=== PATIENT | female | born 1960 | race Hispanic/Latino ===

== ENCOUNTER 2018-11-21 05:45 | Emergency (ER) | payer SELFPAY ==
[~2018-11-21] VITALS: Ht 157.5 cm; Wt 63.5 kg
[~2018-11-21 05:45] MED LIST: AZITHROMYCIN250 MG; GLIPIZIDE5 MG PO; LEVAQUIN500 MG; LISINOPRIL5 MG PO; METFORMIN HCL500 MG PO; PROTONIX40 MG/ML PO; REMERON30 MG PO
--- OUTSIDE RECORDS SUMMARY | 2018-11-21 05:48 | XMS REPORT ---
Author Author Admin, [place] Organization [facility] Adult Medicine Address [address] [place] [address] Phone Allergies, Adverse Reactions, Alerts Allergy Name Reaction Description Start Date Severity Status Provider CODEINE Critical Active Nida Edwardspard SAFETY REPRESENTATIVE MORPHINE Critical Active Nida Cano SAFETY REPRESENTATIVE PENICILLIN Critical Active Nida Cano SAFETY REPRESENTATIVE BACTRIM Critical Active Adelaida Larsen MD Conditions or Problems Problem Name Problem Code Onset Date Status Entry Date Provider Comment Standard Description Annotate PERIPHERAL NEUROPATHY 356.9 03/16 Active Kellee Wheeler Unspecified hereditary and idiopathic peripheral neuropathy HYPERLIPIDEMIA, MIXED 272.2 02/14 Active Kellee Wheeler Mixed hyperlipidemia DIABETES MELLITUS 250.00 11/15 Active Kellee Wheeler Diabetes mellitus without mention of complication, type II or unspecified type, not stated as uncontrolled Arthritis 716.90 Active Adelaida Larsen MD Arthropathy, unspecified, site unspecified Acute bronchitis 466.0 Active Adelaida Larsen MD Acute bronchitis Uterine fibroids 218.9 Active Donald Rivera MD Leiomyoma of uterus, unspecified Genital wart 078.11 Active Adelaida Larsen MD Condyloma acuminatum HIV infection 042 Active Adelaida Larsen MD Human immunodeficiency virus [HIV] disease Essential hypertension 401.1 Active Adeladia Larsen MD Benign essential hypertension Keratoconjunctivitis sicca, not in sjogrens syndrome, bilateral 370.33 Active Lan Omalley MD Keratoconjunctivitis sicca, not specified as Sjogren's Screening examination for other specified viral diseases V73.89 Active Lan Omalley MD Screening examination for other specified viral diseases Health screening V70.0 Active Latricia Marcum RN Routine general medical examination at a health care facility Dry eye syndrome 375.15 Active Vikram Doe OD Tear film insufficiency, unspecified Hyperopia - OU 367.0 Active Vikram Doe OD Hypermetropia PRESBYOPIA 367.4 Active Vikramglendy Doe OD Presbyopia Regular astigmatism, bilateral 367.21 Active Vikram Doe OD Regular astigmatism Mammogram yearly screening V76.12 Active Annel Osuna MD Other screening mammogram WWE/Routine gynecological examination V72.31 Active Annel Osuna MD Routine gynecological examination Overweight 278.02 Active Adelaida Larsen MD Overweight Medication management V68.89 Active Nida Edwardspard SAFETY REPRESENTATIVE Encounters for other specified administrative purpose Preventive health care V70.0 Active Adelaida Larsen MD Routine general medical examination at a health care facility ANXIETY 300.00 2005 Active Kellee Wheeler Anxiety state, unspecified DEPRESSION 311 2005 Active Kellee Wheeler Depressive disorder, not elsewhere classified DEPRESSION, MAJOR, RECURRENT, SEVERE 296.33 Active Kellee Wheeler Major depressive disorder, recurrent episode, severe degree, without mention of psychotic behavior GENREALIZED ANXIETY DISORDER 300.02 Active Kellee Wheeler Generalized anxiety disorder Hx HPV, GENITAL 079.4 2002 Active Aminta Norton MD Human papillomavirus infection in conditions classified elsewhere and of unspecified site Hx TB (12MO TREATMENT) V01.1 1992 Active Aminta Norton MD Contact with or exposure to tuberculosis PNEUMOCYSTIS PNEUMONIA 136.3 2000 Active Kellee Wheeler Pneumocystosis ANEMIA 285.9 10/14 Inactive Francisco Salomon MD Anemia, unspecified Encounter for screening for eye and ear disorders Inactive Lan Omalley MD Encounter for screening for eye and ear disorders Inactive Lan Omalley MD URI ICD-465.9 Inactive Adelaida Larsen MD Urinary frequency ICD-788.41 Inactive Adelaida Larsen MD Abdominal bloating ICD-787.3 Inactive Adelaida Larsen MD BMI 27.0-27.9 Inactive Adelaida Larsen MD Urinary frequency ICD-788.41 Inactive Adelaida Larsen MD Upper respiratory infection ICD-465.9 Inactive Adelaida Larsen MD Constipation Unspecified ICD-564.00 Inactive Adelaida Larsen MD UTI ICD-599.0 Inactive Adelaida Larsen MD Uterine fibroids ICD-218.9 Inactive Adelaida Larsen MD Abdominal pain ICD-789.00 Inactive Adelaida Larsen MD AIDS ICD-042 Inactive Adelaida Larsen MD ANEMIA ICD-285.9 Inactive Francisco Salomon MD HIV INFECTION 042 1990 Inactive Kellee Wheeler Human immunodeficiency virus [HIV] disease HPV, GENITAL 079.4 2002 Inactive Kellee Wheeler Human papillomavirus infection in conditions classified elsewhere and of unspecified site MENINGITIS ICD-322.9 Inactive Adelaida Larsen MD TUBERCULOSIS EXPOSURE (12MO TREATMENT) V01.1 1993 Inactive Kellee Wheeler Contact with or exposure to tuberculosis URI 465.9 Resolved Adelaida Larsen MD Acute upper respiratory infections of unspecified site Urinary frequency 788.41 Resolved Adelaida Larsen MD Urinary frequency Abdominal bloating 787.3 Resolved Adelaida Larsen MD Flatulence, eructation, and gas pain BMI 27.0-27.9 Resolved Adelaida Larsen MD Body Mass Index 27.0-27.9, adult Urinary frequency 788.41 Resolved Adelaida Larsen MD Urinary frequency Upper respiratory infection 465.9 Resolved Adelaida Larsen MD Acute upper respiratory infections of unspecified site Constipation Unspecified 564.00 Resolved Adelaida Larsen MD Constipation, unspecified UTI 599.0 Resolved Adelaida Larsen MD Urinary tract infection, site not specified Uterine fibroids 218.9 Resolved Adelaida Larsen MD Leiomyoma of uterus, unspecified Abdominal pain 789.00 Resolved Adelaida Larsen MD Abdominal pain, unspecified site AIDS 042 1990 Resolved Adelaida Larsen MD Human immunodeficiency virus [HIV] disease MENINGITIS 322.9 2003 Resolved Adelaida Larsen MD Meningitis, unspecified Medication List Medication Instructions Start Date Stop Date Generic Name NDC Status Provider Patient Instruction VOLTAREN 1 % TRANSDERMAL GEL Apply to hands Three Times a Day DICLOFENAC SODIUM 39979711969 Active Adelaida Larsen MD Active IBUPROFEN 600 MG ORAL TABLET 1 By Mouth Every 8 hours As Needed pain/fever IBUPROFEN 07132256363 Active Adelaida Larsen MD Active GLIPIZIDE ER 2.5 MG ORAL TABLET EXTENDED RELEASE 24 HOUR Take 1 tablet orally once daily for diabetes GLIPIZIDE 51904892282 Active Adelaida Larsen MD Active ATIVAN 2 MG ORAL TABLET 1 By Mouth Every Day As Needed LORAZEPAM 86198526485 Active Elizabeth Khanna MD Active ALDARA 5 % EXTERNAL CREAM Apply to affected areas three times a week before bedtime and wash off in morning. IMIQUIMOD 52054298199 Active Adelaida Larsen MD Active DESCOVY 200-25 MG ORAL TABLET take 1 tablet once daily EMTRICITABINE- TENOFOVIR AF 93503524717 Active Adelaida Larsen MD Active PREZCOBIX 800-150 MG ORAL TABLET 1 tab by mouth daily with food DARUNAVIR-COBICISTAT 22976443838 Active Adelaida Larsen MD Active REMERON 30 MG ORAL TABLET 1 By Mouth qpm MIRTAZAPINE 74145212853 Active Elizabeth Khanna MD Active VALTREX 500 MG ORAL TABLET 1 pill twice a day for 7 days VALACYCLOVIR HCL 07848151328 Active Adelaida Larsen MD Active ACCU-CHEK SMARTVIEW IN VITRO STRIP use as directed GLUCOSE BLOOD 89739755468 Active Adelaida Larsen MD Active ZOFRAN ODT 4 MG ORAL TABLET DISINTEGRATING take 1 tablet 3-4 times a day as needed for nausea/vomiting ZOFRAN ODT 4 MG ORAL TABLET DISINTEGRATING ONDANSETRON Inactive AZITHROMYCIN 250 MG ORAL TABLET 2 tablets by mouth on day one then one tablet by mouth each day for a total of 5 days AZITHROMYCIN 250 MG ORAL TABLET 480724 AZITHROMYCIN Inactive CETIRIZINE HCL 10 MG ORAL TABLET Take 1 tablet orally once daily as needed for nasal congestion CETIRIZINE HCL 10 MG ORAL TABLET 8327717 CETIRIZINE HCL Inactive NEXIUM 20 MG ORAL CAPSULE DELAYED RELEASE 1 by mouth daily in am on empty stomach. NEXIUM 20 MG ORAL CAPSULE DELAYED RELEASE 070060 ESOMEPRAZOLE MAGNESIUM Inactive ZOLOFT 25 MG ORAL TABLET 1 By Mouth Every Day ZOLOFT 25 MG ORAL TABLET 861140 SERTRALINE HCL Inactive COLACE 100 MG ORAL CAPSULE 1 by mouth twice a day as needed for constipation COLACE 100 MG ORAL CAPSULE 5545506 DOCUSATE SODIUM Inactive ZOFRAN ODT 4 MG ORAL TABLET DISINTEGRATING 1 By Mouth every 8 hrs as needed for nausea ZOFRAN ODT 4 MG ORAL TABLET DISINTEGRATING ONDANSETRON Inactive CIPRO 500 MG ORAL TABLET 1 by mouth twice a day for 10 days CIPRO 500 MG ORAL TABLET 789678 CIPROFLOXACIN HCL Inactive LEXAPRO 20 MG ORAL TABLET 1 By Mouth Every Day LEXAPRO 20 MG ORAL TABLET 329669 ESCITALOPRAM OXALATE Inactive ATIVAN 2 MG ORAL TABLET 1 By Mouth Every Day As Needed ATIVAN 2 MG ORAL TABLET 740995 LORAZEPAM Inactive TRIUMEQ 600-50-300 MG ORAL TABLET One tablet daily with or without food TRIUMEQ 600-50-300 MG ORAL TABLET [id number] Inactive CETIRIZINE HCL 10 MG ORAL TABLET take 1 tablet orally once for nasal congestion. CETIRIZINE HCL 10 MG ORAL TABLET 3811848 CETIRIZINE HCL Inactive PREZCOBIX 800-150 MG ORAL TABLET Take 1 tablet orally once daily PREZCOBIX 800-150 MG ORAL TABLET DARUNAVIR-COBICISTAT Inactive TRUVADA 200-300 MG ORAL TABLET 1 by mouth daily TRUVADA 200-300 MG ORAL TABLET EMTRICITABINE-TENOFOVIR Inactive DAPSONE 100 MG ORAL TABLET 1 By Mouth once a day for preventioin of infection DAPSONE 100 MG ORAL TABLET 152524 DAPSONE Inactive PROMETHAZINE HCL 12.5 MG ORAL TABLET 1 by mouth every 6 hours as needed for nausea or emesis PROMETHAZINE HCL 12.5 MG ORAL TABLET 772041 PROMETHAZINE HCL Inactive DICYCLOMINE HCL 10 MG ORAL CAPSULE Take 1 tablet orally every 8 hrs as needed for abdominal pain. DICYCLOMINE HCL 10 MG ORAL CAPSULE 421297 DICYCLOMINE HCL Inactive STRIBILD 039-423-148-300 MG ORAL TABLET 1 By Mouth once a day STRIBILD 365-519-108-300 MG ORAL TABLET [id number]-[id number]-XLKIFQKL-TENOF Inactive ATOVAQUONE 750 MG/5ML ORAL SUSPENSION Take 10 ml orally once daily. ATOVAQUONE 750 MG/5ML ORAL SUSPENSION 115112 ATOVAQUONE Inactive PROZAC 20 MG ORAL CAPSULE 1 By Mouth Every Day PROZAC 20 MG ORAL CAPSULE 000043 FLUOXETINE HCL Inactive REMERON 30 MG ORAL TABLET 1 By Mouth at bedtime As Needed REMERON 30 MG ORAL TABLET 792903 MIRTAZAPINE Inactive AMBIEN 10 MG ORAL TABLET 1 tablet at bedtime as needed for sleep. AMBIEN 10 MG ORAL TABLET 298422 ZOLPIDEM TARTRATE Inactive ASPIRIN 81 MG ORAL TABLET 1 by mouth every day ASPIRIN 81 MG ORAL TABLET ASPIRIN Inactive ATRIPLA 600-200-300 MG ORAL TABLET 1 tablet by mouth at bedtime on empty stomach ATRIPLA 600-200-300 MG ORAL TABLET Qrqylegiv-Ejloqtdrnq-Lzsfasdqr Inactive GLIPIZIDE ER 5 MG ORAL TABLET EXTENDED RELEASE 24 HOUR 1 tablet once daily for diabetes. GLIPIZIDE ER 5 MG ORAL TABLET EXTENDED RELEASE 24 HOUR GLIPIZIDE Inactive LOSARTAN POTASSIUM 25 MG ORAL TABLET take 1 tablet orally once daily for high blood pressure. LOSARTAN POTASSIUM 25 MG ORAL TABLET 195703 LOSARTAN POTASSIUM Inactive INTELENCE 200 MG ORAL TABLET 1 By Mouth Twice a Day with food INTELENCE 200 MG ORAL TABLET ETRAVIRINE Inactive LUNESTA 2 MG ORAL TABLET 1 By Mouth take at bedtime as needed for sleep LUNESTA 2 MG ORAL TABLET 681751 ESZOPICLONE Inactive NORVIR 100 MG ORAL TABLET 1 By Mouth Twice a Day NORVIR 100 MG ORAL TABLET 833621 RITONAVIR Inactive PREZISTA 600 MG ORAL TABLET 1 By Mouth Twice a Day with food PREZISTA 600 MG ORAL TABLET DARUNAVIR ETHANOLATE Inactive CYMBALTA 20 MG ORAL CAPSULE DELAYED RELEASE PARTICLES 2 By Mouth Every Morning CYMBALTA 20 MG ORAL CAPSULE DELAYED RELEASE PARTICLES 321122 DULOXETINE HCL Inactive TRAZAMINE 50 MG ORAL 1/2 to 1 By Mouth take at bedtime As Needed TRAZAMINE 50 MG ORAL TRAZODONE & DIET MANAGE PROD Inactive ZOFRAN ODT 4 MG ORAL TABLET DISINTEGRATING take 1 tablet 3-4 times a day as needed for nausea/vomiting ONDANSETRON 90025631090 No Longer Active Adelaida Larsen MD Active AZITHROMYCIN 250 MG ORAL TABLET 2 tablets by mouth on day one then one tablet by mouth each day for a total of 5 days AZITHROMYCIN 11368079652 No Longer Active Aminta Norton MD Active CETIRIZINE HCL 10 MG ORAL TABLET Take 1 tablet orally once daily as needed for nasal congestion CETIRIZINE HCL 44452825992 No Longer Active Adelaida Larsen MD Active NEXIUM 20 MG ORAL CAPSULE DELAYED RELEASE 1 by mouth daily in am on empty stomach. ESOMEPRAZOLE MAGNESIUM 67191217630 No Longer Active Adelaida Larsen MD Active ZOLOFT 25 MG ORAL TABLET 1 By Mouth Every Day SERTRALINE HCL 12856349823 No Longer Active Elizabeth Khanna MD Active COLACE 100 MG ORAL CAPSULE 1 by mouth twice a day as needed for constipation DOCUSATE SODIUM 82623110903 No Longer Active Adelaida Larsen MD Active ZOFRAN ODT 4 MG ORAL TABLET DISINTEGRATING 1 By Mouth every 8 hrs as needed for nausea ONDANSETRON 84781569140 No Longer Active Adelaida Larsen MD Active CIPRO 500 MG ORAL TABLET 1 by mouth twice a day for 10 days CIPROFLOXACIN HCL 40887182605 No Longer Active Adelaida Lasren MD Active LEXAPRO 20 MG ORAL TABLET 1 By Mouth Every Day ESCITALOPRAM OXALATE 79373409230 No Longer Active Elizabeth Khanna MD Active ATIVAN 2 MG ORAL TABLET 1 By Mouth Every Day As Needed LORAZEPAM 81605999220 No Longer Active Elizabeth Khanna MD Active TRIUMEQ 600-50-300 MG ORAL TABLET One tablet daily with or without food ZSQJXGXN-SUXDGQOJRTEU-HSFPOND 12837319006 No Longer Active Adelaida Larsen MD Active CETIRIZINE HCL 10 MG ORAL TABLET take 1 tablet orally once for nasal congestion. CETIRIZINE HCL 63529764843 No Longer Active Adelaida Larsen MD Active PREZCOBIX 800-150 MG ORAL TABLET Take 1 tablet orally once daily DARUNAVIR-COBICISTAT 14995769208 No Longer Active Adelaida Larsen MD Active TRUVADA 200-300 MG ORAL TABLET 1 by mouth daily EMTRICITABINE-TENOFOVIR 32620909725 No Longer Active Adelaida Larsen MD Active DAPSONE 100 MG ORAL TABLET 1 By Mouth once a day for preventioin of infection DAPSONE 03849794654 No Longer Active Adelaida Larsen MD Active PROMETHAZINE HCL 12.5 MG ORAL TABLET 1 by mouth every 6 hours as needed for nausea or emesis PROMETHAZINE HCL 17940275399 No Longer Active Adelaida Larsen MD Active DICYCLOMINE HCL 10 MG ORAL CAPSULE Take 1 tablet orally every 8 hrs as needed for abdominal pain. DICYCLOMINE HCL 06751233669 No Longer Active Adelaida Larsen MD Active STRIBILD 088-863-345-300 MG ORAL TABLET 1 By Mouth once a day APVBIAU-HTGCGGE-EVJZZDVB-TENOF 67628432233 No Longer Active Adelaida Larsen MD Active ATOVAQUONE 750 MG/5ML ORAL SUSPENSION Take 10 ml orally once daily. ATOVAQUONE 04414243697 No Longer Active Adelaida Larsen MD Active PROZAC 20 MG ORAL CAPSULE 1 By Mouth Every Day FLUOXETINE HCL 13935664303 No Longer Active Elizabeth Khanna MD Active REMERON 30 MG ORAL TABLET 1 By Mouth at bedtime As Needed MIRTAZAPINE 61850137975 No Longer Active Adelaida Larsen MD Active AMBIEN 10 MG ORAL TABLET 1 tablet at bedtime as needed for sleep. ZOLPIDEM TARTRATE 10672485099 No Longer Active Elizabeth Khanna MD Active ASPIRIN 81 MG ORAL TABLET 1 by mouth every day ASPIRIN 07454527449 No Longer Active Adelaida Larsen MD Active ATRIPLA 600-200-300 MG ORAL TABLET 1 tablet by mouth at bedtime on empty stomach Rcvumhove-Aficfvvgzg-Npxgzdutg 87236513944 No Longer Active Adelaida Larsen MD Active GLIPIZIDE ER 5 MG ORAL TABLET EXTENDED RELEASE 24 HOUR 1 tablet once daily for diabetes. GLIPIZIDE 81465215832 No Longer Active Adelaida Larsen MD Active LISINOPRIL 10 MG ORAL TABLET 1 by mouth every day LISINOPRIL 32365440705 No Longer Active Adelaida Larsen MD Active LOSARTAN POTASSIUM 25 MG ORAL TABLET take 1 tablet orally once daily for high blood pressure. LOSARTAN POTASSIUM 04687106599 No Longer Active Adelaida Larsen MD Active INTELENCE 200 MG ORAL TABLET 1 By Mouth Twice a Day with food ETRAVIRINE 48336575232 No Longer Active Adelaida Larsen MD Active LUNESTA 2 MG ORAL TABLET 1 By Mouth take at bedtime as needed for sleep ESZOPICLONE 18945224111 No Longer Active Adelaida Larsen MD Active NORVIR 100 MG ORAL TABLET 1 By Mouth Twice a Day RITONAVIR 89447290472 No Longer Active Adelaida Larsen MD Active PREZISTA 600 MG ORAL TABLET 1 By Mouth Twice a Day with food DARUNAVIR ETHANOLATE 25706628934 No Longer Active Adelaida Larsen MD Active CYMBALTA 20 MG ORAL CAPSULE DELAYED RELEASE PARTICLES 2 By Mouth Every Morning DULOXETINE HCL 66235836573 No Longer Active Francisco Salomon MD Active TRAZAMINE 50 MG ORAL 1/2 to 1 By Mouth take at bedtime As Needed TRAZODONE & DIET MANAGE PROD 25215473714 No Longer Active Francisco Salomon MD Active Immunizations Vaccine Administration Date Value Standard Description influenza immunization (Flu Vax) has been administered given elsewhere, at [facility] influenza virus vaccine, unspecified formulation influenza immunization (Flu Vax) has been administered given elsewhere influenza virus vaccine, unspecified formulation Diagnostic Results Date Name Value Unit Range Description Lab Report: UA/M w/rflx Culture, Routine, Microscopic Examination, UA/M ... - Urinalysis mucus on urinalysis Present Not Estab. WBC urine on microscopy 0-5 /hpf {Cells}/[HPF] 0 - 5 Lab Report: CD4/CD8 Ratio Profile, Comp. Metabolic Panel (14), Lipid Panel - Hematology T-helper cells (CD4) to T-suppressor cells (CD8) ratio 76.8 % 12.0-35.5 Lab Report: CD4/CD8 Ratio Profile, Comp. Metabolic Panel (14), Lipid Aparicio ... - Serology HIV-1 antibody, western blot, serum Positive Lab Report: RNA, Real Time PCR (Graph) - Chemistry HIV-1 RNA (log 10) 4.938 sjk90uxdx/mL Lab Report: CD4/CD8 Ratio Profile, Comp. Metabolic Panel (14), Lipid Aparicio ... - Microbiology hepatitis A antibody, total Positive Negative Lab Report: CD4/CD8 Ratio Profile, Comp. Metabolic Panel (14), RNA, Real ... - Chemistry urea nitrogen, blood 12 mg/dL 6-24 Lab Report: QuantiFERON TB Gold (In Tube), QuantiFERON In Tube - Hematology Quantiferon Gold TB blood test for tuberculosis screening Negative Negative Lab Report: CD4/CD8 Ratio Profile, Comp. Metabolic Panel (14), RNA, Real ... - Hematology erythrocyte (RBC) count 3.96 X10E6/UL 10*6/mm3 3.77-5.28 Office Visit: Acute Visit #10 - Urinalysis nitrite, urine, semiquantitative negative Lab Report: UA/M w/rflx Culture, Routine, Microscopic Examination, UA/M ... - Urinalysis urine color Yellow Yellow Lab Report: CD4/CD8 Ratio Profile, Comp. Metabolic Panel (14), RNA, Real ... - Chemistry urea nitrogen/creatinine ratio, serum 14 9-23 Lab Report: CD4/CD8 Ratio Profile, Comp. Metabolic Panel (14), RNA, Real ... - Hematology mean corpuscular volume, RBC 92 fL 79-97 Lab Report: CD4/CD8 Ratio Profile, Comp. Metabolic Panel (14), Lipid Aparicio ... - Chemistry HDL cholesterol, serum 60 mg/dL >39 Lab Report: CD4/CD8 Ratio Profile, Comp. Metabolic Panel (14), RNA, Real ... - Hematology monocytes as percent of blood leukocytes 7 % Lab Report: CD4/CD8 Ratio Profile, Comp. Metabolic Panel (14), RNA, Real ... - Chemistry creatinine, serum 0.84 mg/dL 0.57-1.00 bilirubin, serum, total 0.4 mg/dL 0.0-1.2 Lab Report: CD4/CD8 Ratio Profile, Comp. Metabolic Panel (14), RNA, Real ... - Hematology Eosinophil Absolute Count 0.2 X10E3/UL 10*3/uL 0.0-0.4 Office Visit: Acute Visit #10 - Urinalysis blood in urine (hemoglobin) by dipstick hemolyzed trace Lab Report: UA/M w/rflx Culture, Routine, Microscopic Examination, UA/M ... - Urinalysis pH, urine, semiquantitative 6.0 5.0-7.5 Lab Report: CD4/CD8 Ratio Profile, Comp. Metabolic Panel (14), RNA, Real ... - Hematology leukocyte count, blood 5.4 X10E3/UL 10*3/mm3 3.4-10.8 Lab Report: CD4/CD8 Ratio Profile, Comp. Metabolic Panel (14), RNA, Real ... - Chemistry potassium, serum 4.7 mmol/L 3.5-5.2 albumin, serum 3.8 g/dL 3.5-5.5 Lab Report: CD4/CD8 Ratio Profile, Comp. Metabolic Panel (14), RNA, Real ... - Hematology lymphocyte count, blood, automated 2.0 X10E3/UL 10*3/mm3 0.7-3.1 Lab Report: Chlamydia/GC Amplification - Microbiology Neisseria gonorrhoeae DNA probe Negative Negative Lab Report: CD4/CD8 Ratio Profile, Comp. Metabolic Panel (14), RNA, Real ... - Chemistry sodium, serum 141 mmol/L 134-144 Lab Report: Urine Culture, Routine, Result - Urinalysis urine culture No growth Lab Report: CD4/CD8 Ratio Profile, Comp. Metabolic Panel (14), Lipid Aparicio ... - Serology toxoplasma gondii antibody, IgG <6.5 0.0-6.4 Lab Report: CD4/CD8 Ratio Profile, Comp. Metabolic Panel (14), RNA, Real ... - Hematology neutrophils as percent of blood leukocytes 52 % Lab Report: Iron and TIBC, Vitamin B12 and Folate, Ferritin, Serum - Chemistry iron saturation percent, serum 5 % 15-55 Lab Report: UA/M w/rflx Culture, Routine, Microscopic Examination, UA/M ... - Chemistry specific gravity, body fluid 1.019 1.005-1.030 Lab Report: CD4/CD8 Ratio Profile, Comp. Metabolic Panel (14), RNA, Real ... - Serology HIV-1RNA, serum, by PCR, quantitative 70 {Copies}/mL Lab Report: Iron and TIBC, Vitamin B12 and Folate, Ferritin, Serum - Chemistry iron, serum 19 ug/dL 35-155 Lab Report: UA/M w/rflx Culture, Routine, Microscopic Examination, UA/M ... - Chemistry RBC, Urine 0-2 /hpf /[HPF] 0 - 2 Lab Report: UA/M w/rflx Culture, Routine, Microscopic Examination, UA/M ... - Urinalysis protein, urine, semiquantitative (dipstick) Negative Negative/Trace Office Visit: Acute Visit #10 - Serology influenza virus A antigen negative Lab Report: CD4/CD8 Ratio Profile, Comp. Metabolic Panel (14), RNA, Real ... - Serology rapid plasma reagin antibody, serum Non Reactive Non Reactive Lab Report: UA/M w/rflx Culture, Routine, Microscopic Examination, UA/M ... - Microbiology microscopic exam See below: Lab Report: CD4/CD8 Ratio Profile, Comp. Metabolic Panel (14), Lipid Aparicio ... - Serology hepatitis B core antibody, total Negative Negative Lab Report: CD4/CD8 Ratio Profile, Comp. Metabolic Panel (14), Lipid Aparicio ... - Chemistry triglyceride, serum, fasting 170 mg/dL 0-149 Lab Report: CD4/CD8 Ratio Profile, Comp. Metabolic Panel (14), RNA, Real ... - Chemistry calcium, serum 9.6 mg/dL 8.7-10.2 Lab Report: Microalb/Creat Ratio, [facility] - Chemistry microalbumin/creatinine ratio, urine <9.9 mg/g creat ug/mg 0.0-30.0 Lab Report: UA/M w/rflx Culture, Routine, Microscopic Examination, UA/M ... - Urinalysis bacteria, urine microscopy Few None seen/Few Office Visit: Acute Visit #10 - Urinalysis specific gravity, urine 1.020 Lab Report: CD4/CD8 Ratio Profile, Comp. Metabolic Panel (14), RNA, Real ... - Chemistry protein, total, serum 6.9 g/dL 6.0-8.5 alkaline phosphatase, serum 118 U/L 39-117 Lab Report: CD4/CD8 Ratio Profile, Comp. Metabolic Panel (14), RNA, Real ... - Hematology T-helper cells (CD4) as percent of blood lymphocytes 16.8 % 30.8-58.5 lymphocytes as percent of blood leukocytes 37 % Lab Report: CD4/CD8 Ratio Profile, Comp. Metabolic Panel (14), RNA, Real ... - Chemistry hemoglobin A1C, blood, as % of total hemoglobin 6.0 % 4.8-5.6 Lab Report: CD4/CD8 Ratio Profile, Comp. Metabolic Panel (14), RNA, Real ... - Genetics/fertility eGFR if 90 mL/min/1.73m2 >59 Lab Report: CD4/CD8 Ratio Profile, Comp. Metabolic Panel (14), RNA, Real ... - Chemistry globulin, serum 3.1 1.5-4.5 Estimated Glomerular Filtration Rate (calc) 78 mL/min/1.73m2 >59 Lab Report: UA/M w/rflx Culture, Routine, Microscopic Examination, UA/M ... - Basic Occult Blood, urine Negative Negative Lab Report: CD4/CD8 Ratio Profile, Comp. Metabolic Panel (14), Lipid Aparicio ... - Serology hepatitis B surface antibody Reactive Lab Report: UA/M w/rflx Culture, Routine, Microscopic Examination, UA/M ... - Urinalysis urobilinogen, urine, semiquantitative (dipstick) 0.2 0.2-1.0 Lab Report: CD4/CD8 Ratio Profile, Comp. Metabolic Panel (14), Lipid Panel - Chemistry estimated glomerular filtration rate >59 mL/min/1.73 mL/min >59 Lab Report: CD4/CD8 Ratio Profile, Comp. Metabolic Panel (14), RNA, Real ... - Hematology monocyte count, blood, automated 0.4 X10E3/UL 10*3/uL 0.1-0.9 Lab Report: CD4/CD8 Ratio Profile, Comp. Metabolic Panel (14), Lipid Aparicio ... - Genetics/fertility HIV-1 gp41 antibody, serum Present Lab Report: HCV Antibody, RPR, TSH Rfx on Abnormal to Free T4, HBsAg Screen - Chemistry thyroid stimulating hormone, serum 0.780 u[iU]/mL 0.450-4.500 Office Visit: Acute Visit #10 - Chemistry beta HCG, urine, semiquantitative negative Lab Report: CD4/CD8 Ratio Profile, Comp. Metabolic Panel (14), Lipid Aparicio ... - Chemistry very low density lipoproteins 34 mg/dL 5-40 Lab Report: UA/M w/rflx Culture, Routine, Microscopic Examination, UA/M ... - Urinalysis epithelial cells, urine 0-10 /[LPF] 0 - 10 Lab Report: HCV Antibody, RPR, TSH Rfx on Abnormal to Free T4, HBsAg Screen - Chemistry hepatitis B surface antigen Negative Negative Lab Report: CD4/CD8 Ratio Profile, Comp. Metabolic Panel (14), RNA, Real ... - Chemistry chloride, serum 102 mmol/L 96-106 Lab Report: CD4/CD8 Ratio Profile, Comp. Metabolic Panel (14), Lipid Aparicio ... - Serology HIV-1/HIV-2 Ab, serum Repeatedly Reactive Non Reactive Lab Report: UA/M w/rflx Culture, Routine, Microscopic Examination, UA/M ... - Urinalysis leukocyte esterase, urine, by dipstick Negative Negative Lab Report: CD4/CD8 Ratio Profile, Comp. Metabolic Panel (14), RNA, Real ... - Hematology mean corpuscular hemoglobin concentration, RBC 33.1 G/DL % 31.5-35.7 Lab Report: HCV Antibody, RPR, TSH Rfx on Abnormal to Free T4, HBsAg Screen - Serology hepatitis C antibody, serum 0.2 0.0-0.9 Lab Report: CD4/CD8 Ratio Profile, Comp. Metabolic Panel (14), RNA, Real ... - Chemistry absolute CD8 1264 109-897 Lab Report: UA/M w/rflx Culture, Routine, Microscopic Examination, UA/M ... - Urinalysis bilirubin, urine Negative Negative Lab Report: CD4/CD8 Ratio Profile, Comp. Metabolic Panel (14), RNA, Real ... - Chemistry Absolute Neutrophils 2.8 X10E3/UL 10*3/uL 1.4-7.0 Lab Report: CD4/CD8 Ratio Profile, Comp. Metabolic Panel (14), Lipid Aparicio ... - Chemistry LDL cholesterol, serum 114 mg/dL 0-99 Lab Report: Iron and TIBC, Vitamin B12 and Folate, Ferritin, Serum - Chemistry ferritin, serum 2 ng/mL 10-291 Lab Report: CD4/CD8 Ratio Profile, Comp. Metabolic Panel (14), RNA, Real ... - Chemistry albumin/globulin ratio, serum 1.2 1.1-2.5 Lab Report: Iron and TIBC, Vitamin B12 and Folate, Ferritin, Serum - Chemistry iron binding capacity, unsaturated 371 ug/dL 150-375 Lab Report: CD4/CD8 Ratio Profile, Comp. Metabolic Panel (14), Lipid Aparicio ... - Chemistry cholesterol, serum 208 mg/dL 100-199 Lab Report: Microalb/Creat Ratio, [facility] - Chemistry creatinine, random, urine 30.2 mg/dL 15.0-278.0 Lab Report: UA/M w/rflx Culture, Routine, Microscopic Examination, UA/M ... - Urinalysis appearance, urine Clear Clear Lab Report: Chlamydia/GC Amplification - Lab chlamydia DNA probe Negative Negative Lab Report: CD4/CD8 Ratio Profile, Comp. Metabolic Panel (14), RNA, Real ... - Chemistry aspartate aminotransferase (SGOT), serum 23 U/L 0-40 Lab Report: CD4/CD8 Ratio Profile, Comp. Metabolic Panel (14), RNA, Real ... - Hematology red blood cell distribution width 14.3 % 12.3-15.4 Lab Report: Iron and TIBC, Vitamin B12 and Folate, Ferritin, Serum - Chemistry B-12, serum >2000 pg/mL pg/mL 211-911 Lab Report: UA/M w/rflx Culture, Routine, Microscopic Examination, UA/M ... - Urinalysis urinalysis, microscopic examination MICRON Lab Report: CD4/CD8 Ratio Profile, Comp. Metabolic Panel (14), RNA, Real ... - Chemistry immature granulocytes, percentage of total cells, blood 0 % Lab Report: CD4/CD8 Ratio Profile, Comp. Metabolic Panel (14), RNA, Real ... - Hematology hematocrit, blood 36.3 % 34.0-46.6 basophils as percent of blood leukocytes 0 % Lab Report: CD4/CD8 Ratio Profile, Comp. Metabolic Panel (14), RNA, Real ... - Chemistry CD4/CD8 ratio 0.27 0.92-3.72 carbon dioxide, venous blood 25 mmol/L 18-29 Lab Report: UA/M w/rflx Culture, Routine, Microscopic Examination, UA/M ... - Chemistry nitrate, urine Negative Negative Lab Report: CD4/CD8 Ratio Profile, Comp. Metabolic Panel (14), RNA, Real ... - Chemistry alanine aminotransferase (SGPT), serum 23 U/L 0-32 Lab Report: CD4/CD8 Ratio Profile, Comp. Metabolic Panel (14), RNA, Real ... - Hematology mean corpuscular hemoglobin, RBC 30.3 pg 26.6-33.0 hemoglobin, blood 12.0 g/dL 11.1-15.9 T-suppressor cells (CD8) as percent of blood lymphocytes 63.2 % 12.0-35.5 Lab Report: UA/M w/rflx Culture, Routine, Microscopic Examination, UA/M ... - Urinalysis glucose, urine, semiquantitative Negative Negative Lab Report: CD4/CD8 Ratio Profile, Comp. Metabolic Panel (14), RNA, Real ... - Hematology basophil count, absolute 0.0 x10E3/uL 0.0-0.2 Lab Report: Microalb/Creat Ratio, [facility] - Urinalysis microalbumin/total urine volume <3.0 ug/mL mg/L 0.0-17.0 Lab Report: CD4/CD8 Ratio Profile, Comp. Metabolic Panel (14), RNA, Real ... - Hematology eosinophils as percent of blood leukocytes 4 % Lab Report: CD4/CD8 Ratio Profile, Comp. Metabolic Panel (14), RNA, Real ... - Chemistry blood glucose, random 130 mg/dL 65-99 Lab Report: Iron and TIBC, Vitamin B12 and Folate, Ferritin, Serum - Chemistry iron binding capacity, total 390 ug/dL 250-450 Lab Report: CD4/CD8 Ratio Profile, Comp. Metabolic Panel (14), RNA, Real ... - Hematology T-helper cells (CD4) count 336 /UL uL 359-1519 Lab Report: UA/M w/rflx Culture, Routine, Microscopic Examination, UA/M ... - Urinalysis ketones, urine, by test strip Negative Negative Lab Report: CD4/CD8 Ratio Profile, Comp. Metabolic Panel (14), RNA, Real ... - Hematology platelet count 473 X10E3/UL 10*3/mm3 150-379 Office Visit: Acute Visit #10 - Lab influenza B virus antigen negative Encounters Date Encounter Provider Code Facility 10:36:49 CDT Est Patient Exp Problem - [id number] Elizabeth Khanna MD CPT-25581 [facility] 12:03:38 CDT Est Patient Detailed - 19973 Adelaida Larsen MD CPT-86283 [facility] Adult Medicine 14:31:03 PSYCH THERAPIST Est Patient Problem Focus - 36043 Adelaida Larsen MD CPT-11718 [facility] Adult Medicine 12:00:33 PSYCH THERAPIST Est Patient Exp Problem - 17466 Elizabeth Khanna MD CPT-76501 [facility] 12:20:02 PSYCH THERAPIST Est Patient Exp Problem - 41494 Aminta Norton MD CPT-12774 [facility] Adult Medicine 19:31:19 PSYCH THERAPIST Est Patient Exp Problem - 67402 Adelaida Larsen MD CPT-77400 [facility] Adult Medicine 09:57:07 PSYCH THERAPIST Est Patient Detailed - 74774 Adelaida Larsen MD CPT-48783 [facility] Adult Medicine 11:59:27 PSYCH THERAPIST Est Patient Exp Problem - 07695 Elizabeth Khanna MD CPT-32592 [facility] 11:17:44 PSYCH THERAPIST Est Patient Exp Problem - 53276 Donald Rivera MD CPT-15985 [facility] ADMINISTRATION ASSISTANT 12:14:36 CDT Est Patient Exp Problem - 42535 Elizabeth Khanna MD CPT-74534 [facility] 12:35:12 CDT Est Patient Exp Problem - 90171 Adelaida Larsen MD CPT-04419 [facility] Adult Medicine 15:42:47 CDT Est Patient Exp Problem - 39327 Elizabeth Khanna MD CPT-79985 [facility] 11:03:36 CDT Est Patient Detailed - 15443 Adelaida Larsen MD CPT-13991 [facility] Adult Medicine 14:38:10 CDT Est Patient Exp Problem - 17887 Elizabeth Khanna MD CPT-86790 [facility] 14:14:08 CDT Est Patient Exp Problem - 68484 Elizabeth Khanna MD CPT-03194 [facility] 10:16:42 CDT Est Patient Exp Problem - 47385 Elizabeth Khanna MD CPT-31477 [facility] 16:35:19 CDT Est Patient Exp Problem - 37943 Elizabeth Khanna MD CPT-23572 [facility] 09:58:44 CDT Est Patient Detailed - 50509 Adelaida Larsen MD CPT-42677 [facility] Adult Medicine 13:23:53 CDT Est Patient Exp Problem - 41288 Elizabeth Khanna MD CPT-40936 [facility] 16:10:02 CDT Est Patient Exp Problem - 47562 Aminta Norton MD CPT-27364 [facility] Adult Medicine 10:31:50 CDT Est Patient Exp Problem - 61182 Elizabeth Khanna MD CPT-86381 [facility] 23:31:53 CDT Est Patient Detailed - 24267 Adelaida Larsen MD CPT-88954 [facility] Adult Medicine 10:51:42 CDT Est Patient Exp Problem - 26228 Elizabeth Khanna MD CPT-19576 [facility] 15:42:01 CDT Est Patient Exp Problem - 70513 Adelaida Larsen MD CPT-61634 [facility] Adult Medicine 12:29:32 CDT Est Patient Exp Problem - 57772 Adelaida Larsen MD CPT-67439 [facility] Adult Medicine 12:26:33 CDT Est Patient Exp Problem - 87980 Adelaida Larsen MD CPT-97179 [facility] 10:23:50 CDT Est Patient Exp Problem - 87030 Elizabeth Khanna MD CPT-73009 [facility] 16:26:49 PSYCH THERAPIST Est Patient Nurse - Only Visit - 88469 Latricia Marcum RN CPT-52474 [facility] Adult Medicine 10:31:05 PSYCH THERAPIST Est Patient Exp Problem - 21809 Elizabeth Khanna MD CPT-38103 [facility] 09:17:01 PSYCH THERAPIST Est Patient Detailed - 54915 Adelaida Larsen MD CPT-55911 [facility] 12:25:44 PSYCH THERAPIST Est Patient Exp Problem - 75004 Elizabeth Khanna MD CPT-79718 [facility] 10:33:18 PSYCH THERAPIST Est Patient Exp Problem - 18400 Elizabeth Khanna MD CPT-69970 [facility] 09:31:36 PSYCH THERAPIST Est Patient Exp Problem - 34507 Elizabeth Khanna MD CPT-35724 [facility] 14:14:38 PSYCH THERAPIST Est Patient Exp Problem - 45394 Adelaida Larsen MD CPT-58941 [facility] Adult Medicine 08:08:25 PSYCH THERAPIST Est Patient Exp Problem - 17450 Adelaida Larsen MD CPT-03761 [facility] Adult Medicine 14:11:44 PSYCH THERAPIST Est Patient Exp Problem - 67181 Elizabeth Khanna MD CPT-09024 [facility] Behavioral Health 13:57:03 PSYCH THERAPIST Ofc Vst, Est Level III Adelaida Larsen MD CPT-22054 [facility] Adult Medicine 22:02:09 PSYCH THERAPIST Ofc Vst, Est Level III Adelaida Larsen MD CPT-12284 [facility] Adult Medicine 17:06:52 CDT Ofc Vst, Est Level III Nida Cano [facility] CPT-00988 [facility] Adult Medicine 21:24:12 CDT Ofc Vst, Est Level III Adelaida Larsen MD CPT-86294 [facility] Adult Medicine 14:24:44 CDT Ofc Vst, Est Level III Francisco Salomon MD CPT-54517 [facility] Adult Medicine 09:32:55 CDT Est Patient Exp Problem - 14283 Elizabeth Khanna MD CPT-23662 [facility] 12:54:38 CDT Est Patient Exp Problem - 84391 Elizabeth Khanna MD CPT-48973 [facility] 14:52:35 CDT Ofc Vst, Est Level III Adelaida Larsen MD CPT-14296 [facility] Adult Medicine 11:23:49 CDT Ofc Vst, Est Level III Francisco Salomon MD CPT-31476 [facility] Adult Medicine Procedures Code Procedure Name Date Entry Date Standard Description CPT-54665 Est Patient Comprehensive Opt - 82489 11:28:10 CDT CPT-87065 Est Patient Intermediate Opt - 83664 10:36:53 CDT CPT-57172 Urinalysis - Dip only - In House 12:20:01 PSYCH THERAPIST CPT-97170 Rapid Flu - In House 12:20:01 PSYCH THERAPIST CPT-07085 Psychotherapy with E/M 30 (16-37) min - 71780(with patient and/or family member) 15:42:49 CDT CPT-29187 Psychotherapy with E/M 30 (16-37) min - 82506(with patient and/or family member) 16:35:21 CDT CPT-05785 Est Patient Intermediate Opt - 29444 09:49:02 CDT CPT-47110 Psychotherapy with E/M 30 (16-37) min 53278 -patient and/or family member 12:25:46 PSYCH THERAPIST CPT-26489 Est Patient Intermediate Opt - 71743 10:24:58 PSYCH THERAPIST CPT-79763 Psychotherapy with E/M 30 (16-37) min 67074 -patient and/or family member 09:31:37 PSYCH THERAPIST CPT-32166 Venipuncture 16:47:05 PSYCH THERAPIST CPT-12519 Handling of specimen for transfer 16:47:05 PSYCH THERAPIST CPT-83645 New Patient Well Exam (40 - 64 Yrs) - 67047 16:47:05 PSYCH THERAPIST CPT-91524 Psychotherapy with E/M 30 (16-37) min 17916 -patient and/or family member 12:54:39 CDT CPT-99305 Diagnostic evaluation with medical - 54646 15:03:24 CDT CPT-91084 Handling of specimen for transfer 09:51:08 CDT CPT-86320 Venipuncture 09:51:08 CDT
--- OUTSIDE RECORDS SUMMARY | 2018-11-21 05:48 | XMS REPORT ---
Author Author [facility] Address Unknown Phone Unavailable Care Team Providers Care Boxing And Pressing Supervisor Name Role Phone Unavailable Unavailable Problems This patient has no known problems. Allergies, Adverse Reactions, Alerts This patient has no known allergies or adverse reactions. Medications This patient has no known medications. Encounters Start Date/Time End Date/Time Encounter Type Admission Type Attending [facility] Care Facility Care Department Encounter ID 2018-10-12 16:42:00 2018-10-12 16:42:00 Emergency E [id number] 2018-10-11 14:20:28 2018-10-11 14:20:28 Emergency [facility] [id number]
--- OUTSIDE RECORDS SUMMARY | 2018-11-21 05:48 | XMS REPORT | Clinical Summary ---
Author Author [facility] Organization [facility] Address Unknown Phone Unavailable Care Team Providers Care Fisher Sponge Hooking Name Role Phone PCP Unavailable Allergies Comments Active Allergy Reactions Severity Noted Date Codeine 03/31/2015 Penicillins 03/31/2015 Medications End Date Status Medication Sig Dispensed Refills Start Date Active famotidine (PEPCID) 20 mg Take 1 tablet 60 tablet 0 tabletIndications: by mouth 2 9 Epigastric pain times daily. Active Problems Problem Noted Date Abdominal pain 04/01/2015 Bilateral lower abdominal pain 03/31/2015 Encounters Care Team Description Date Type Specialty Glenn Avitia MD Epigastric pain (Primary Dx) 10/11/2018 Emergency Emergency Medicine 10/11/2018 Travel after 11/20/2017 Social History Date Tobacco Use Types Packs/Day Years Used Never Assessed Sex Assigned at Date Recorded Not on file Industry Job Start Date Occupation Not on file Not on file Not on file Travel End Travel History Travel Start No recent travel history available. Last Filed Vital Signs Reading Time Taken Comments Vital Sign 140/72 10/11/2018 3:34 PM CDT Blood Pressure 62 10/11/2018 3:34 PM CDT Pulse 36.9 C (98.4 F) 10/11/2018 3:34 PM CDT Temperature 16 10/11/2018 3:34 PM CDT Respiratory Rate 100% 10/11/2018 3:34 PM CDT Oxygen Saturation - - Inhaled Oxygen Concentration - - Weight - - Height - - Body Mass Index Plan of Treatment Health Maintenance Due Date Last Done Comments Cervical Cancer Scrn (3 1982 Yrs) Breast Cancer Scrn 2001 (Yearly) Colorectal Cancer Scrn 2011 Annual (FIT/FOBT) Age 50 to 75 IMM Influenza Seasonal 03/08/2019Mar to August (>/=19 yrs) Procedures Comments Procedure Name Priority Date/Time Associated Diagnosis BMP POC Routine 10/11/2018 12:19 PM CDT TROPONIN I POC Routine 10/11/2018 12:18 PM CDT LIVER PROFILE STAT 10/11/2018 12:15 PM CDT LIPASE STAT 10/11/2018 12:15 PM CDT CBC/DIFF STAT 10/11/2018 12:15 PM CDT 12 LEAD EKG Routine 10/11/2018 12:07 PM CDT after 11/20/2017 Results * BMP POC (10/11/2018 12:19 PM CDT) CO2 POC 28 21 - 32 mmol/L [facility] Chloride POC 101 98 - 107 mmol/L [facility] Potassium POC 3.9 3.50 - 5.10 mmol/L [facility] Sodium POC 142 136 - 145 mmol/L [facility] Glucose POC 132 (H) 74 - 106 mg/dL [facility] 1 Urea Nitrogen 12 7 - 18 mg/dL [facility] POC [facility] 1 Creatinine POC 0.7 0.6 - 1.3 mg/dL [facility] 1 Calcium Ionized 1.17 1.15 - 1.29 mmol/L [facility] POC [facility] 1 Hemoglobin POC 12.6 12.0 - 16.0 g/dL [facility] 1 Hematocrit POC 37.0 37.0 - 47.0 % [facility] 1 GFR, Estimated >60 mL/min/1.73 m2 [facility] 1 GFR, Estim, >60 mL/min/1.73 m2 [facility] Afr-Am [facility] 1 Specimen Performing Organization Address City/State/Zipcode Phone Number MISYS [facility] * TROPONIN I POC (10/11/2018 12:18 PM CDT) Troponin POC 0.00 0.00 - 0.08 ng/mL [facility] 1 Specimen Performing Organization Address City/State/Zipcode Phone Number MISYS [facility] * LIVER PROFILE (10/11/2018 12:15 PM CDT) Protein, Total, 7.9 6.0 - 8.3 g/dL [facility] Serum [facility] 1 Albumin 4.2 3.7 - 5.3 g/dL [facility] 1 Bilirubin, 0.7 0.2 - 1.2 mg/dL [facility] Total [facility] 1 Alkaline 62 34 - 104 U/L [facility] Phosphatase, S [facility] 1 AST (SGOT) 17 13 - 39 U/L [facility] 1 ALT 11 7 - 52 U/L [facility] 1 D Bilirubin 0.2 0.0 - 0.2 mg/dL [facility] 1 Specimen Blood Performing Organization Address [facility] Phone Number [facility] * LIPASE (10/11/2018 12:15 PM CDT) Lipase 26 11 - 81 U/L [facility] 1 Specimen Blood Performing Organization Address [facility] Phone Number [facility] 1 * CBC/DIFF (10/11/2018 12:15 PM CDT) WBC 6.4 4.5 - 11.0 K/uL [facility] 2 RBC 4.43 4.20 - 5.40 M/uL [facility] 2 Hemoglobin 12.1 12.0 - 16.0 g/dL [facility] 2 Hematocrit 38.4 37.0 - 47.0 % [facility] 2 MCV 87 82 - 92 fL [facility] 2 MCH 27.3 27.0 - 32.0 pg [facility] 2 MCHC 31.5 (L) 32.0 - 36.0 g/dL [facility] 2 RDW 41.7 36.4 - 46.3 fL [facility] 2 Platelets 181 150 - 400 K/uL [facility] 2 Mean Platelet 10.5 9.4 - 12.4 fL [facility] 2 Percent NRBC 0.0 [facility] 2 Absolute NRBC 0.00 [facility] 2 Neutrophils 57.7 34.0 - 70.0 % [facility] 2 Lymphs 33.2 20.0 - 50.0 % [facility] 2 Monocytes 7.8 5.0 - 12.0 % [facility] 2 Eos 0.9 0.7 - 5.0 % [facility] 2 Basos 0.2 0.1 - 1.2 % [facility] 2 Immature 0.2 0.0 - 0.5 [facility] Granulocytes [facility] 2 Neutrophils 3.71 1.56 - 6.13 K/uL [facility] (Absolute) [facility] 2 Lymphs 2.13 1.18 - 3.74 K/uL [facility] (Absolute) [facility] 2 Monocytes(Absol 0.50 (H) 0.24 - 0.36 K/uL [facility] [place]) [facility] 2 Eos (Absolute) 0.06 0.04 - 0.36 K/uL [facility] 2 Baso (Absolute) 0.01 0.01 - 0.08 K/uL [facility] 2 Immature Grans 0.01 0.00 - 0.03 K/uL [facility] (Abs) [facility] 2 Specimen Blood Performing Organization Address City/[facility] Phone Number [facility] * 12 LEAD EKG (10/11/2018 12:07 PM CDT) 12 LEAD EKG FOR [facility] Test Date:2018-10-11 Pat Name: ROSA PATTON Department: [id number] Room: Gender: Loom Operator: [id number] 18 Requested By: FRANCISCO SANCHEZ Order Number: [id number] Jermaine MD: Francisco JJ Measurements Intervals [place] Rate: 56 P:38 DC: 138 QRS: 78 QRSD: 79 T:-15 QT: 396 QTc:382 Interpretive Statements SINUS BRADYCARDIA NONSPECIFIC ST & T-WAVE ABNORMALITY ABNORMAL ECG Electronically Signed On 10-11-2018 12:38:29 CDT by Francisco JJ Specimen Performing Organization Address City/[facility] Phone Number [facility] after 11/20/2017 Insurance Type Payer Benefit Subscriber ID Effective Phone Address Plan / Dates Group [facility] PRESUMED INDIGENT PRESUMED xxxxxxxxx 2018-7 INDIGENT /10/2018 (Work)
== END 2018-11-21 06:03 | disposition left against medical advice (07) ==
LOC: ER 05:45
DX: Z04.1 Encounter for examination and observation following transport accident (principal); Z13.89 Encounter for screening for other disorder

== ENCOUNTER 2022-06-19 21:35 | Emergency (ER) | payer OTHER ==
[~2022-06-19] VITALS: Ht 157.5 cm; Wt 63.5 kg
[2022-06-19 22:05] LABS: BASOPHILS % 0.2 % (0.0-1.0); EOSINOPHILS # (AUTO) 0.2 (0.0-0.4); EOSINOPHILS % 3.6 % (0.0-6.0); HEMATOCRIT 37.6 % (34.2-44.1); HEMOGLOBIN 11.9 g/dL (12.0-16.0); LYMPHOCYTES # (AUTO) 3.3 (1.0-3.2); LYMPHOCYTES % 52.4 % (18.0-39.1); MEAN CORPUSCULAR HEMOGLOBIN 29.3 pg (28-32); MEAN CORPUSCULAR HGB CONC 31.6 g/dL (31-35); MEAN CORPUSCULAR VOLUME 92.6 fL (81-99); MONOCYTES # (AUTO) 0.7 (0.2-0.8); MONOCYTES % 11.3 % (4.4-11.3); NEUTROPHILS # (AUTO) 2.1 (2.1-6.9); NEUTROPHILS % 32.3 % (38.7-80.0); PLATELET COUNT 223 x10e3/uL (140-360); RED BLOOD COUNT 4.06 x10e6/uL (3.6-5.1); RED CELL DISTRIBUTION WIDTH 12.5 % (11.7-14.4)
[2022-06-19] MEDS ORDERED: SODIUM CHLORIDE 0.9% 1000ML 1,000 ML IV ONE (22:15)
[2022-06-19 22:25] LABS: ALANINE AMINOTRANSFERASE 9 IU/L (0-55); ALBUMIN 4.1 g/dL (3.5-5.0); ALBUMIN/GLOBULIN RATIO 1.1 (0.8-2.0); ALKALINE PHOSPHATASE 101 IU/L (40-150); ANION GAP 16.7 mmol/L (8-16); BLOOD UREA NITROGEN 14 mg/dL (7-26); BUN/CREATININE RATIO 16 (6-25); CALCIUM 9.6 mg/dL (8.4-10.2); CARBON DIOXIDE 25 mmol/L (22-29); CHLORIDE 97 mmol/L (98-107); CREATINE KINASE 52 IU/L (29-168); CREATININE, SERUM 0.86 mg/dL (0.57-1.11); GLUCOSE 321 mg/dL (74-118); POTASSIUM 3.7 mmol/L (3.5-5.1); SODIUM 135 mmol/L (136-145)
[2022-06-19] MEDS ORDERED: SODIUM CHLORIDE 0.9% 1000ML 1,000 ML ONE (22:27)
[2022-06-19] MEDS ORDERED: ACETAMINOPHEN 325 MG TAB PO STA (22:35)
[2022-06-19] MEDS ORDERED: ONDANSETRON HCL INJ 2MG/ML 2ML 2 MG/ML VIAL IV STA (22:35)
[2022-06-19 23:44] VITALS: BP 144/69
== END 2022-06-19 23:43 | disposition home or self-care (01) ==
LOC: ER 21:45
DX: R07.89 Other chest pain (principal); E11.65 Type 2 diabetes mellitus with hyperglycemia; R03.0 Elevated blood-pressure reading, without diagnosis of hypertension; R42 Dizziness and giddiness; F41.9 Anxiety disorder, unspecified; R94.31 Abnormal electrocardiogram [ECG] [EKG]
CPT/HCPCS: 36415; 71045; 80053; 82550; 82553; 83690; 83880; 84484; 85025; 93005; 99284; J2405; J7030

== ENCOUNTER 2024-10-02 03:49 | Observation (INO) | payer MEDICARE, OTHER ==
[~2024-10-02] VITALS: Ht 157.5 cm; Wt 61.2 kg
[2024-10-02 03:52] VITALS: TEMP 98.3
[2024-10-02] MEDS: ONDANSETRON HCL INJ 2MG/ML 2ML 2 MG/ML VIAL IV STA (04:09)
[2024-10-02] MEDS: ACETAMINOPHEN 325 MG TAB PO ONE (04:17)
[2024-10-02 04:21] LABS: BASOPHILS % 0.4 % (0.0-1.0); EOSINOPHILS # (AUTO) 0.3 (0.0-0.4); EOSINOPHILS % 4.5 % (0.0-6.0); HEMATOCRIT 35.2 % (34.2-44.1); LYMPHOCYTES # (AUTO) 4.4 (1.0-3.2); LYMPHOCYTES % 58.5 % (18.0-39.1); MEAN CORPUSCULAR HEMOGLOBIN 30.6 pg (28-32); MEAN CORPUSCULAR HGB CONC 34.1 g/dL (31-35); MEAN CORPUSCULAR VOLUME 89.8 fL (81-99); MONOCYTES # (AUTO) 0.5 (0.2-0.8); MONOCYTES % 6.9 % (4.4-11.3); NEUTROPHILS # (AUTO) 2.2 (2.1-6.9); NEUTROPHILS % 28.9 % (38.7-80.0); PLATELET COUNT 219 x10e3/uL (140-360); RED BLOOD COUNT 3.92 x10e6/uL (3.6-5.1); RED CELL DISTRIBUTION WIDTH 13.7 % (11.7-14.4); WHITE BLOOD COUNT 7.52 x10e3/uL (4.8-10.8)
[2024-10-02 04:43] LABS: ALBUMIN 3.6 g/dL (3.5-5.0); ANION GAP 15.5 mmol/L (8-16); BILIRUBIN,TOTAL 0.3 mg/dL (0.2-1.2); CALCIUM 8.9 mg/dL (8.4-10.2); CREATININE, SERUM 0.88 mg/dL (0.57-1.11); POTASSIUM 3.5 mmol/L (3.5-5.1); TOTAL PROTEIN 7.2 g/dL (6.5-8.1)
[2024-10-02] MEDS ORDERED: ONDANSETRON HCL INJ 2MG/ML 2ML 2 MG/ML VIAL IV PRN (05:30)
[2024-10-02] MEDS ORDERED: Morphine 4mg INJECTION 4 MG/ML INJ IV PRN (05:30)
[2024-10-02] MEDS ORDERED: DEXTROSE 50% SYRINGE 50 ML IV PRN (05:45)
[2024-10-02] MEDS: SODIUM CHLORIDE 0.9% 1000ML 1,000 ML IV ONE (06:16)
[2024-10-02 07:18] VITALS: PULSE 49; RESP 18
[2024-10-02] MEDS ORDERED: INSULIN REGULAR, HUMAN 100 UNIT/1 ML SQ SCH (07:30)
[2024-10-02 07:35] VITALS: PULSE 54; RESP 18; O2SAT 99
== END 2024-10-02 07:51 | disposition left against medical advice (07) ==
LOC: ER 03:57 → ERHOLD 05:21
PROVIDERS: ADMIT Internal Medicine; ATTEND Internal Medicine
DX: R11.0 Nausea (principal); T40.425A Adverse effect of tramadol, initial encounter; C50.912 Malignant neoplasm of unspecified site of left female breast; E11.9 Type 2 diabetes mellitus without complications; Y92.019 Unspecified place in single-family (private) house as the place of occurrence of the external cause
CPT/HCPCS: 36415; 71045; 80053; 85025; 94799; 99284; G0378; J2405; J7030